=== PATIENT | male | born 1940 | race Caucasian/White ===

== ENCOUNTER → 2019-11-27 | Outpatient (CLI) | payer MEDICARE | END | disposition home or self-care (01) | LOC: CVU 10:20 | PROVIDERS: ATTEND Internal Medicine Cardiovascular Disease | DX: I08.2 Rheumatic disorders of both aortic and tricuspid valves (principal); I11.9 Hypertensive heart disease without heart failure; E78.5 Hyperlipidemia, unspecified; Z86.73 Personal history of transient ischemic attack (TIA), and cerebral infarction without residual deficits | CPT/HCPCS: 93306; 93356 ==

== ENCOUNTER 2020-03-25 12:28 | Inpatient (IN) | payer MEDICARE ==
[~2020-03-25] VITALS: Ht 182.9 cm; Wt 122.5 kg
--- NOTE | 2020-03-25 12:35 | NUR ---
PT BIB [facility] FROM HOME WHERE HE C/O CHEST PAIN ONSET 1130. PER EMS, SAID PT WAS DIAPHORETIC & PALE UPON ONSET OF CP. PT HAS HX OF CVA LAST YEAR. SEES [facility] FOLLOWING CVA BUT NO CARDIAC HX THAT PT IS AWARE OF. EKG BY EMS SHOWED 1ST DEGREE BLOCK AND L BBB. PT TOOK 324 ASA AT HOME. TREATED WITH 0.4MG NITRO AND 100MCG FENTANYL EN ROUTE. UPON ARRIVAL TO ED, PT A&OX4, STATES CP IS NOW RESOLVED. POC RV'WD WITH PT, HE VERBALIZES UNDERSTANDING.
--- NOTE | 2020-03-25 13:01 | NUR ---
ERP AT NOW.
[2020-03-25 13:03] LABS: BASOPHILS # (AUTO) 0.04 x10^3/uL (0-0.1); BASOPHILS % (AUTO) 1 % (0-1); EOSINOPHILS # (AUTO) 0.27 x10^3/uL (0-0.4); EOSINOPHILS % (AUTO) 5 % (1-7); LYMPHOCYTES # (AUTO) 1.74 x10^3/uL (1-3.4); LYMPHOCYTES % (AUTO) 33 % (22-44); MD NO; MEAN CORPUSCULAR HEMOGLOBIN 30.3 pg (27.5-34.5); MEAN CORPUSCULAR HGB CONC 33.2 g/dL (33.2-36.2); MEAN CORPUSCULAR VOLUME 91.4 fL (81-97); MEAN PLATELET VOLUME 8.3 fL (7.4-10.4); MONOCYTES # (AUTO) 0.41 x10^3/uL (0.2-0.8); MONOCYTES % (AUTO) 8 % (2-9); NEUTROPHILS # (AUTO) 2.86 x10^3/uL (1.8-6.8); NEUTROPHILS % (AUTO) 54 % (42-75); PLATELET COUNT 147 x10^3/uL (130-400); RED BLOOD COUNT 4.29 x10^6/uL (4.38-5.82)
[2020-03-25 13:13] LABS: ALANINE AMINOTRANSFERASE 19 U/L (12-78); ALBUMIN 3.1 g/dL (3.4-5.0); ANION GAP 10 mmol/L (5-15); CALCIUM 8.4 mg/dL (8.5-10.1); CHLORIDE 110 mmol/L (98-107); CREATININE 0.87 mg/dL (0.7-1.3)
[2020-03-25] MEDS ORDERED: LOPE-114 PO (13:13)
[2020-03-25] MEDS ORDERED: ATOR20TA37 PO (13:13)
[2020-03-25] MEDS ORDERED: VALS160T3 PO (13:13)
[2020-03-25] MEDS ORDERED: TAMS-11 PO (13:13)
[2020-03-25] MEDS ORDERED: ICOS1CAP PO (13:13)
[2020-03-25] MEDS ORDERED: CLOP75TA PO (13:13)
[2020-03-25] MEDS ORDERED: ASPI-515 PO (13:13)
[2020-03-25 13:17] LABS: ALKALINE PHOSPHATASE 75 U/L (45-117); BILIRUBIN,TOTAL 0.3 mg/dL (0.2-1.0); TROPONIN I 0.025 ng/mL (0.000-0.045)
[2020-03-25] MEDS ORDERED: NITROGLYCERIN SINGLE TAB 0.4 MG SL ONE (13:39)
--- NOTE | 2020-03-25 13:46 | NUR ---
PT REPORTED ONSET OF CP AGAIN, STERNAL, 02/24, "PRESSURE". ERP NOTIFIED, PT MEDICATED WITH SL NITRO PER ORDERS.
[2020-03-25] MEDS ORDERED: NITROGLYCERIN SINGLE TAB 0.4 MG SL PRN (14:00)
[2020-03-25] MEDS ORDERED: ONDANSETRON 2MG/ML, 2ML ONE (14:22)
[2020-03-25] MEDS ORDERED: MORPHINE SULFATE 4 MG/ML, 1ML ONE (14:23)
[2020-03-25] MEDS ORDERED: ONDANSETRON 2MG/ML, 2ML IVPush ONE (14:30)
[2020-03-25] MEDS ORDERED: MORPHINE SULFATE 4 MG/ML, 1ML IVPush PRN ×2 (14:30→17:00)
--- NOTE | 2020-03-25 14:33 | NUR ---
Danii RuvalcabaIrpwyzz-Ivor-[phone] and cell is [phone].
--- NOTE | 2020-03-25 14:43 | NUR ---
PT MEDICATED WITH MORPHINE & ZOFRAN PER ORDERS FOR CONTINUED CHEST PAIN/PRESSURE. REPEAT EKG DONE AT BS.
[2020-03-25] MEDS ORDERED: ASPIRIN 81 MG TABLET CHEW PO ONE (15:00)
--- NOTE | 2020-03-25 15:00 | NUR ---
PT VERBALIZED SOME RELIEF OF CHEST PAIN AFTER MORPHINE. UNDERSTANDS PLAN FOR ADMISSION.
--- NOTE | 2020-03-25 15:28 | NUR ---
Yusuf RuvalcabaOkteqhb-Ztx-[phone].
--- NOTE | 2020-03-25 16:22 | NUR ---
HOSPITALIST WAS IN TO SEE PT. PT TALKING ON THE PHONE WITH NOW.
[2020-03-25] MEDS ORDERED: HEPARIN 5,000 UNITS/ML, 1ML SQ SCH (17:00)
[2020-03-25] MEDS ORDERED: hydrALAzine 20 MG/ML, 1ML IVPush PRN (17:00)
[2020-03-25] MEDS ORDERED: NITROGLYCERIN 0.4 MG BOTTLE (25 TABS) SL PRN (17:00)
[2020-03-25] MEDS ORDERED: ACETAMINOPHEN 325 MG TABLET PO PRN (17:00)
--- NOTE | 2020-03-25 17:45 | NUR ---
ADMITTING MD AWARE OF PT'S ELEVATED TROP. OKAY TO SEND PT UPSTAIRS PRIOR TO HEPARIN GTT.
[2020-03-25] MEDS ORDERED: HEPARIN 5,000 UNITS/ML, 1ML IV PRN ×2 (18:00)
[2020-03-25] MEDS ORDERED: HEPARIN 5,000 UNITS/ML, 1ML IV ONE ×2 (18:00→19:00)
[2020-03-25] MEDS ORDERED: HEPARIN 25,000 UNITS/250ML PMX 250 ML IV PRN ×3 (18:00→19:00)
[2020-03-25 18:42] VITALS: BP 159/71
[2020-03-25 19:05] VITALS: BP 145/77
[2020-03-26 02:04] VITALS: BP 144/70
[2020-03-26 02:15] LABS: BASOPHILS # (AUTO) 0.02 x10^3/uL (0-0.1); BASOPHILS % (AUTO) 0 % (0-1); EOSINOPHILS # (AUTO) 0.06 x10^3/uL (0-0.4); EOSINOPHILS % (AUTO) 1 % (1-7); LYMPHOCYTES # (AUTO) 0.87 x10^3/uL (1-3.4); LYMPHOCYTES % (AUTO) 13 % (22-44); MD NO; MEAN CORPUSCULAR HEMOGLOBIN 30.4 pg (27.5-34.5); MEAN CORPUSCULAR HGB CONC 32.8 g/dL (33.2-36.2); MEAN CORPUSCULAR VOLUME 92.7 fL (81-97); MEAN PLATELET VOLUME 8.3 fL (7.4-10.4); MONOCYTES # (AUTO) 0.45 x10^3/uL (0.2-0.8); MONOCYTES % (AUTO) 7 % (2-9); NEUTROPHILS # (AUTO) 5.49 x10^3/uL (1.8-6.8); NEUTROPHILS % (AUTO) 80 % (42-75); PLATELET COUNT 132 x10^3/uL (130-400)
[2020-03-26 02:24] LABS: ANION GAP 4 mmol/L (5-15); CALCIUM 8.6 mg/dL (8.5-10.1); CHLORIDE 109 mmol/L (98-107); CREATININE 0.82 mg/dL (0.7-1.3)
[2020-03-26] MEDS: HEPARIN 5,000 UNITS/ML, 1ML IV PRN ×2 (02:53→09:58)
[2020-03-26 06:21] VITALS: BP 126/71
[2020-03-26] MEDS ORDERED: ASPIRIN 325 MG TABLET EC PO ONE (08:00)
[2020-03-26] MEDS: ASPIRIN 81 MG TABLET CHEW PO SCH (08:15)
[2020-03-26] MEDS ORDERED: CLOPIDOGREL 75 MG TABLET PO SCH (09:00)
[2020-03-26] MEDS: SODIUM CHLORIDE 0.9% 1,000 ML IV SCH ×4 (10:05→20:42)
[2020-03-26] MEDS ORDERED: MIDAZOLAM 1 MG/ML, 5ML ONE (10:39)
[2020-03-26] MEDS ORDERED: VERAPAMIL 2.5 MG/ML, 2ML ONE (10:40)
[2020-03-26] MEDS ORDERED: FENTANYL PF 100 MCG/2ML ONE (10:40)
[2020-03-26] MEDS ORDERED: BIVALIRUDIN 250 MG ONE (10:40)
[2020-03-26] MEDS ORDERED: LIDOCAINE-MPF 1%, 5ML ONE (10:40)
[2020-03-26] MEDS ORDERED: HEPARIN 1,000 UNITS/ML, 10ML ONE (10:40)
[2020-03-26] MEDS ORDERED: TICAGRELOR 90 MG TABLET ONE (10:40)
[2020-03-26] MEDS ORDERED: SODIUM CHLORIDE 0.9% 1,000 ML IV SCH (11:35)
[2020-03-26] MEDS ORDERED: ONDANSETRON 2MG/ML, 2ML IVPush PRN (13:00)
[2020-03-26 13:12] VITALS: BP 147/77
[2020-03-26 19:23] VITALS: BP 110/62
[2020-03-26] MEDS: TICAGRELOR 90 MG TABLET PO SCH (20:40)
[2020-03-26] MEDS ORDERED: ATORVASTATIN 80 MG TABLET PO SCH (21:00)
[2020-03-26] MEDS ORDERED: ATORVASTATIN 10 MG TABLET PO SCH (21:00)
[2020-03-27 01:20] VITALS: BP 117/68
[2020-03-27 06:26] VITALS: BP 128/72
[2020-03-27] MEDS ORDERED: METOPROLOL TARTRATE 25 MG TAB PO SCH (07:30)
[2020-03-27] MEDS: SODIUM CHLORIDE 0.9% 1,000 ML IV SCH (07:45)
[2020-03-27] MEDS: TICAGRELOR 90 MG TABLET PO SCH (07:49)
[2020-03-27] MEDS: ASPIRIN 81 MG TABLET CHEW PO SCH (07:49)
[2020-03-27] MEDS ORDERED: TICA90TA PO (10:23)
[2020-03-27] MEDS ORDERED: METO25TA35 PO (10:23)
[2020-03-27] MEDS ORDERED: ATOR-2 PO (10:23)
== END 2020-03-27 11:48 | disposition home or self-care (01) | DRG 246 ==
LOC: ED 13:29 → SUATTDRO 15:57 → EDIP 16:33 → 5SO 17:13 → EDIP 17:17 → 5SO 18:37 → DCLOUNGE 03-27 11:38 → OBSVTOIN 03-27 11:39
PROVIDERS: ADMIT Hospitalist; ATTEND Internal Medicine
PROC: 027034Z Dilation of Coronary Artery, One Artery with Drug-eluting Intraluminal Device, Percutaneous Approach (ICD-10-PCS; principal; 2020-03-26)
PROC: B2111ZZ Fluoroscopy of Multiple Coronary Arteries using Low Osmolar Contrast (ICD-10-PCS; 2020-03-26)
PROC: B2151ZZ Fluoroscopy of Left Heart using Low Osmolar Contrast (ICD-10-PCS; 2020-03-26)
PROC: 4A023N7 Measurement of Cardiac Sampling and Pressure, Left Heart, Percutaneous Approach (ICD-10-PCS; 2020-03-26)
DX: I21.4 Non-ST elevation (NSTEMI) myocardial infarction (principal); I50.31 Acute diastolic (congestive) heart failure; I11.0 Hypertensive heart disease with heart failure; I25.10 Atherosclerotic heart disease of native coronary artery without angina pectoris; I35.0 Nonrheumatic aortic (valve) stenosis; R73.9 Hyperglycemia, unspecified; I27.20 Pulmonary hypertension, unspecified; Z96.653 Presence of artificial knee joint, bilateral; Z86.73 Personal history of transient ischemic attack (TIA), and cerebral infarction without residual deficits; Z95.5 Presence of coronary angioplasty implant and graft; Z79.02 Long term (current) use of antithrombotics/antiplatelets; Z79.82 Long term (current) use of aspirin; Z79.899 Other long term (current) drug therapy
CPT/HCPCS: 36415; 71045; 80048; 80053; 83036; 83735; 84100; 84484; 85025; 85520; 93005; 93306; 93458; 96374; 96375; 99156; C1769; C1894; C9600; G0378; J0583; J1644; J2250; J2405; J3010; C1725; C1874; C1887; J2270; J7030; Q9967

== ENCOUNTER → 2021-02-27 | Outpatient (CLI) | payer MEDICARE ==
[~2021-02-27] MED LIST: ASPI-963 PO; ATOR-2 PO; ATOR20TA37 PO; CLOP75TA PO; ICOS1CAP PO; LOPE-114 PO; METO25TA35 PO; TAMS-11 PO; TICA90TA PO; VALS160T3 PO
== END | disposition home or self-care (01) ==
LOC: CVU 14:32
PROVIDERS: ATTEND Internal Medicine Cardiovascular Disease
DX: I08.0 Rheumatic disorders of both mitral and aortic valves (principal); I11.9 Hypertensive heart disease without heart failure; I25.2 Old myocardial infarction; E78.5 Hyperlipidemia, unspecified; Z98.61 Coronary angioplasty status
CPT/HCPCS: 93306

== ENCOUNTER → 2021-03-06 | Outpatient (CLI) | payer MEDICARE ==
[~2021-03-06] MED LIST changes: +REGADENOSON 0.4 MG/5 ML SYRINGE ONE
== END | disposition home or self-care (01) ==
LOC: CFH 12:43
PROVIDERS: ATTEND Internal Medicine Cardiovascular Disease
DX: I21.19 ST elevation (STEMI) myocardial infarction involving other coronary artery of inferior wall (principal); I10 Essential (primary) hypertension; Z98.61 Coronary angioplasty status
CPT/HCPCS: 78452; 93017; A9502; J2785

== ENCOUNTER 2021-05-14 06:54 | Day surgery (SDC) | payer MEDICARE ==
[~2021-05-14] VITALS: Ht 182.9 cm; Wt 111.4 kg
[~2021-05-14 06:54] MED LIST changes: -REGADENOSON 0.4 MG/5 ML SYRINGE ONE
[2021-05-14] MEDS ORDERED: VALS80TA3 PO (07:26)
[2021-05-14] MEDS ORDERED: LEVO50TA5 PO (07:26)
[2021-05-14 07:28] VITALS: BP 141/66
[2021-05-14] MEDS ORDERED: SODIUM CHLORIDE 0.9% 1,000 ML IV SCH (07:30)
[2021-05-14 07:55] LABS: BASOPHILS % (AUTO) 1 % (0-1); EOSINOPHILS % (AUTO) 4 % (1-7); LYMPHOCYTES % (AUTO) 20 % (22-44); MEAN CORPUSCULAR HEMOGLOBIN 31.1 pg (27.5-34.5); MEAN CORPUSCULAR HGB CONC 33.2 g/dL (33.2-36.2); MEAN PLATELET VOLUME 8.1 fL (7.4-10.4); MONOCYTES % (AUTO) 9 % (2-9); NEUTROPHILS % (AUTO) 67 % (42-75); PLATELET COUNT 143 x10^3/uL (130-400); RED BLOOD COUNT 4.03 x10^6/uL (4.38-5.82)
[2021-05-14] MEDS ORDERED: LIDOCAINE 2%, 20ML ONE (07:56)
[2021-05-14] MEDS ORDERED: MIDAZOLAM 1 MG/ML, 2ML ONE (07:56)
[2021-05-14] MEDS ORDERED: FENTANYL PF 100 MCG/2ML ONE (07:56)
[2021-05-14 08:02] LABS: CALCIUM 9.1 mg/dL (8.5-10.1)
[2021-05-14 08:05] LABS: INTERNATIONAL NORMALIZED RATIO 1.19 (0.93-1.1); PROTHROMBIN TIME 12.6 Seconds (9.6-11.5)
[2021-05-14 08:13] LABS: ANION GAP 4 mmol/L (5-15); CHLORIDE 110 mmol/L (98-107)
== END 2021-05-14 15:54 | disposition home or self-care (01) ==
LOC: CACL 06:54
PROVIDERS: ATTEND Internal Medicine Cardiovascular Disease
DX: Z01.810 Encounter for preprocedural cardiovascular examination (principal); I35.0 Nonrheumatic aortic (valve) stenosis; I25.118 Atherosclerotic heart disease of native coronary artery with other forms of angina pectoris; I25.83 Coronary atherosclerosis due to lipid rich plaque; I10 Essential (primary) hypertension; E78.5 Hyperlipidemia, unspecified; E03.9 Hypothyroidism, unspecified; G47.30 Sleep apnea, unspecified; E66.9 Obesity, unspecified; Z79.01 Long term (current) use of anticoagulants; Z79.899 Other long term (current) drug therapy; Z85.46 Personal history of malignant neoplasm of prostate; Z88.5 Allergy status to narcotic agent; Z95.5 Presence of coronary angioplasty implant and graft
CPT/HCPCS: 36415; 80048; 85025; 85610; 85730; 93454; 99156; C1769; C1894; J2250; J3010; Q9967; 99157

== ENCOUNTER → 2021-05-29 | Outpatient (CLI) | payer MEDICARE ==
[~2021-05-29] MED LIST changes: +LEVO50TA5 PO; +VALS80TA3 PO; +VISIPAQUE 320 MG/ML, 150ML BOTTLE ONE
== END | disposition home or self-care (01) ==
LOC: CVU 09:59
PROVIDERS: ATTEND Internal Medicine Cardiovascular Disease
DX: Z01.810 Encounter for preprocedural cardiovascular examination (principal); I65.23 Occlusion and stenosis of bilateral carotid arteries; K57.30 Diverticulosis of large intestine without perforation or abscess without bleeding; R06.02 Shortness of breath; I35.0 Nonrheumatic aortic (valve) stenosis; M43.8X4 Other specified deforming dorsopathies, thoracic region; I70.0 Atherosclerosis of aorta; M51.36 Other intervertebral disc degeneration, lumbar region
CPT/HCPCS: 71275; 74174; 93880; Q9967

== ENCOUNTER 2021-06-03 09:00 | Inpatient (IN) | payer MEDICARE ==
[~2021-06-03] VITALS: Ht 182.9 cm; Wt 112.3 kg
[~2021-06-03 09:00] MED LIST changes: -VISIPAQUE 320 MG/ML, 150ML BOTTLE ONE
[2021-06-10] MEDS ORDERED: ONDANSETRON 2MG/ML, 2ML IV PRN (06:30)
[2021-06-10] MEDS ORDERED: SODIUM CHLORIDE 0.9% 1,000 ML IV ONE (06:30)
[2021-06-10 06:47] LABS: BASOPHILS % (AUTO) 0 % (0-1); EOSINOPHILS % (AUTO) 5 % (1-7); LYMPHOCYTES % (AUTO) 22 % (22-44); MEAN CORPUSCULAR HEMOGLOBIN 31.4 pg (27.5-34.5); MEAN CORPUSCULAR HGB CONC 33.6 g/dL (33.2-36.2); MONOCYTES % (AUTO) 11 % (2-9); NEUTROPHILS % (AUTO) 62 % (42-75); PLATELET COUNT 143 x10^3/uL (130-400); RED BLOOD COUNT 4.09 x10^6/uL (4.38-5.82); RED CELL DISTRIBUTION WIDTH 14.2 % (9.4-14.8)
[2021-06-10 06:49] LABS: INTERNATIONAL NORMALIZED RATIO 1.17 (0.93-1.1); PROTHROMBIN TIME 12.4 Seconds (9.6-11.5)
[2021-06-10 06:51] LABS: ALANINE AMINOTRANSFERASE 34 U/L (12-78); ALBUMIN 3.3 g/dL (3.4-5.0); ANION GAP 5 mmol/L (5-15); CHLORIDE 110 mmol/L (98-107); CREATININE 0.89 mg/dL (0.7-1.3)
[2021-06-10 06:53] LABS: ALKALINE PHOSPHATASE 89 U/L (45-117); BILIRUBIN,TOTAL 0.6 mg/dL (0.2-1.0); TOTAL PROTEIN 7.5 g/dL (6.4-8.2)
[2021-06-10] MEDS ORDERED: FENTANYL PF 250 MCG/5ML ONE (07:04)
[2021-06-10] MEDS ORDERED: ROCURONIUM 10MG/ML,5ML ONE (07:05)
[2021-06-10] MEDS ORDERED: SUCCINYLCHOLINE 20 MG/ML, 10ML ONE (07:06)
[2021-06-10] MEDS ORDERED: HEPARIN 1,000 UNITS/ML, 10ML ONE ×2 (07:08→07:10)
[2021-06-10 07:19] VITALS: BP 126/56
[2021-06-10] MEDS ORDERED: PROTAMINE SULFATE 10 MG/ML, 5ML ONE (07:23)
[2021-06-10] MEDS ORDERED: PHENYLEPHRINE 10 MG/ML ONE (07:32)
[2021-06-10] MEDS ORDERED: CEFAZOLIN 1,000 MG ONE (07:32)
[2021-06-10] MEDS ORDERED: PROPOFOL 10 MG/ML, 20ML ONE (07:32)
[2021-06-10] MEDS ORDERED: DEXAMETHASONE 4 MG/ML, 1ML ONE (07:32)
[2021-06-10] MEDS ORDERED: ACETAMINOPHEN 325 MG TABLET PO PRN (08:30)
[2021-06-10] MEDS ORDERED: hydrALAzine 20 MG/ML, 1ML IVPush PRN (08:30)
[2021-06-10] MEDS: VALSARTAN 80 MG TABLET PO SCH (09:00)
[2021-06-10] MEDS: ASPIRIN 81 MG TABLET EC PO SCH (09:00)
[2021-06-10] MEDS: LOPERAMIDE 2 MG CAPSULE PO SCH (09:00)
[2021-06-10] MEDS: TICAGRELOR 90 MG TABLET PO SCH ×2 (09:00→21:04)
[2021-06-10] MEDS: LEVOTHYROXINE 75 MCG TABLET PO SCH (09:41)
[2021-06-10] MEDS: TAMSULOSIN 0.4 MG CAP.ER.24H PO SCH (10:13)
[2021-06-10 14:00] VITALS: BP 124/65
[2021-06-10] MEDS: METOPROLOL TARTRATE 25 MG TAB PO SCH (17:58)
[2021-06-10 19:13] VITALS: BP 121/68
[2021-06-10] MEDS ORDERED: ATORVASTATIN 80 MG TABLET PO SCH (21:00)
[2021-06-11 00:18] VITALS: BP 113/63
[2021-06-11 06:01] LABS: BASOPHILS % (AUTO) 0 % (0-1); EOSINOPHILS % (AUTO) 0 % (1-7); LYMPHOCYTES % (AUTO) 7 % (22-44); MEAN CORPUSCULAR HEMOGLOBIN 31.3 pg (27.5-34.5); MEAN CORPUSCULAR HGB CONC 33.6 g/dL (33.2-36.2); MEAN PLATELET VOLUME 8.7 fL (7.4-10.4); MONOCYTES % (AUTO) 6 % (2-9); NEUTROPHILS % (AUTO) 87 % (42-75); PLATELET COUNT 120 x10^3/uL (130-400); RED BLOOD COUNT 3.79 x10^6/uL (4.38-5.82); RED CELL DISTRIBUTION WIDTH 13.9 % (9.4-14.8)
[2021-06-11] MEDS: LEVOTHYROXINE 75 MCG TABLET PO SCH (06:01)
[2021-06-11 06:11] LABS: ANION GAP 7 mmol/L (5-15); CALCIUM 8.8 mg/dL (8.5-10.1); CHLORIDE 108 mmol/L (98-107); CREATININE 0.78 mg/dL (0.7-1.3)
[2021-06-11 06:37] VITALS: BP 143/69
[2021-06-11] MEDS: TAMSULOSIN 0.4 MG CAP.ER.24H PO SCH (09:00)
[2021-06-11] MEDS: VALSARTAN 80 MG TABLET PO SCH (09:23)
[2021-06-11] MEDS: TICAGRELOR 90 MG TABLET PO SCH (09:24)
[2021-06-11] MEDS: ASPIRIN 81 MG TABLET EC PO SCH (09:24)
[2021-06-11] MEDS: LOPERAMIDE 2 MG CAPSULE PO SCH (09:24)
[2021-06-11] MEDS: METOPROLOL TARTRATE 25 MG TAB PO SCH (09:24)
[2021-06-11] MEDS ORDERED: ACET325T26 PO (11:13)
== END 2021-06-11 13:00 | disposition home or self-care (01) | DRG 266 ==
LOC: ORIP 06-10 06:01 → 5SO 06-10 09:29
PROVIDERS: ADMIT Internal Medicine Cardiovascular Disease; ATTEND Internal Medicine Cardiovascular Disease
PROC: B3101ZZ Fluoroscopy of Thoracic Aorta using Low Osmolar Contrast (ICD-10-PCS; 2021-06-10)
PROC: B24BZZ4 Ultrasonography of Heart with Aorta, Transesophageal (ICD-10-PCS; 2021-06-10)
PROC: 02RF38Z Replacement of Aortic Valve with Zooplastic Tissue, Percutaneous Approach (ICD-10-PCS; principal; 2021-06-10 07:30)
DX: I35.0 Nonrheumatic aortic (valve) stenosis (principal); Z00.6 Encounter for examination for normal comparison and control in clinical research program; I50.33 Acute on chronic diastolic (congestive) heart failure; I11.0 Hypertensive heart disease with heart failure; Z20.822 Contact with and (suspected) exposure to COVID-19; Z88.6 Allergy status to analgesic agent; E03.9 Hypothyroidism, unspecified; G47.30 Sleep apnea, unspecified; I25.10 Atherosclerotic heart disease of native coronary artery without angina pectoris
CPT/HCPCS: 33361; 36415; 76937; 80048; 80053; 85025; 85347; 85610; 86850; 86900; 86923; 87635; 93005; 93306; 93355; 93356; C1760; C1769; C1894; G0378; J0690; J1100; J1644; J2704; J2720; J3010; J0330; J2370; J7030; Q9967

== ENCOUNTER → 2021-07-11 | Outpatient (CLI) | payer MEDICARE ==
[~2021-07-11] MED LIST changes: +ACET325T26 PO
== END | disposition home or self-care (01) ==
LOC: CVU 10:32
PROVIDERS: ATTEND Internal Medicine Cardiovascular Disease
DX: Z01.810 Encounter for preprocedural cardiovascular examination (principal); I37.1 Nonrheumatic pulmonary valve insufficiency; I65.29 Occlusion and stenosis of unspecified carotid artery; I11.9 Hypertensive heart disease without heart failure; E78.5 Hyperlipidemia, unspecified; Z95.2 Presence of prosthetic heart valve
CPT/HCPCS: 93306